=== PATIENT | female | born 1950 | race Caucasian/White ===

== ENCOUNTER 2023-05-11 09:52 | Day surgery (SDC) | payer OTHER ==
[~2023-05-11] VITALS: Ht 165.1 cm; Wt 91.7 kg
[2023-05-11] MEDS ORDERED: Aspir 8181 MG PO (10:11)
[2023-05-11] MEDS ORDERED: ACET325 PO (10:12)
--- NOTE | 2023-05-11 10:24 | NUR ---
05/11/23 1024 Morena Fallon AT 1015 PLEDGET 1018
--- NOTE | 2023-05-11 11:19 | NUR ---
05/11/23 1119 Paul Roman IV REMOVED INTACT. SITE WNL.
== END 2023-05-11 11:30 | disposition home or self-care (01) ==
LOC: ORSCSDS 09:52
PROVIDERS: Ophthalmology
PROC: 08DJ3ZZ Extraction of Right Lens, Percutaneous Approach (ICD-10-PCS; principal; 2023-05-11 11:00)
DX: H25.11 Age-related nuclear cataract, right eye (principal); F17.210 Nicotine dependence, cigarettes, uncomplicated; E66.9 Obesity, unspecified; Z68.33 Body mass index [BMI] 33.0-33.9, adult; I10 Essential (primary) hypertension; Z79.82 Long term (current) use of aspirin; Z79.899 Other long term (current) drug therapy
CPT/HCPCS: J2001; J2250; J3010; J3301; J7040; V2632

== ENCOUNTER 2023-05-18 07:51 | Day surgery (SDC) | payer OTHER ==
[~2023-05-18] VITALS: Ht 165.1 cm; Wt 91.0 kg
[~2023-05-18 07:51] MED LIST: ACET325 PO; Aspir 8181 MG PO
--- NOTE | 2023-05-18 08:15 | NUR ---
05/18/23 0815 Morena Fallon AT 0812 PLEDGET AT 0813
== END 2023-05-18 09:24 | disposition home or self-care (01) ==
LOC: ORSCSDS 07:51
PROVIDERS: Ophthalmology
PROC: 08RK3JZ Replacement of Left Lens with Synthetic Substitute, Percutaneous Approach (ICD-10-PCS; principal; 2023-05-18 09:00)
DX: H25.12 Age-related nuclear cataract, left eye (principal); Z96.1 Presence of intraocular lens; I10 Essential (primary) hypertension; E66.9 Obesity, unspecified; Z68.34 Body mass index [BMI] 34.0-34.9, adult; Z79.899 Other long term (current) drug therapy; Z79.82 Long term (current) use of aspirin; F17.210 Nicotine dependence, cigarettes, uncomplicated
CPT/HCPCS: J2001; J2250; J3010; J3301; J7040; V2632

== ENCOUNTER 2024-08-01 22:31 | Emergency (ER) | payer OTHER ==
[~2024-08-01] VITALS: Ht 165.1 cm; Wt 90.7 kg
[2024-08-01] MEDS ORDERED: Ondansetron HCl 2 MG / ML 2ML Vial ONE (22:38)
[2024-08-01] MEDS ORDERED: NS 1,000 ML IV ONE (22:39)
[2024-08-01] MEDS ORDERED: Ondansetron HCl 2 MG / ML 2ML Vial IV PRN (22:45)
[2024-08-01 22:50] LABS: BASOPHILS ABSOLUTE AUTO 0.06 K/mm3 (0.00-0.23); BASOPHILS PERCENT AUTO 1 % (0-2); EOSINOPHILS ABSOLUTE AUTO 0.01 K/mm3 (0.00-0.68); EOSINOPHILS PERCENT AUTO 0 % (0-6); Hematocrit 49.9 % (33.0-51.0); Hemoglobin 16.8 g/dL (11.5-16.0); IMMATURE GRAN ABSOLUTE AUTO 0.05 K/mm3 (0.00-0.10); IMMATURE GRAN PERCENT AUTO 0 % (0-1); LYMPHOCYTES ABSOLUTE AUTO 1.59 K/mm3 (0.84-5.20); LYMPHOCYTES PERCENT AUTO 12 % (21-46); MONOCYTES ABSOLUTE AUTO 0.21 K/mm3 (0.16-1.47); MONOCYTES PERCENT AUTO 2 % (4-13); Mean Corpuscular HGB 29.3 pg (26.0-34.0); Mean Corpuscular HGB Conc 33.7 g/dL (31.5-36.5); Mean Corpuscular Volume 87 fL (80-100); NEUTROPHILS ABSOLUTE AUTO 11.41 K/mm3 (1.96-9.15); NEUTROPHILS PERCENT AUTO 86 % (41-73); Platelet Count 229 K/mm3 (150-400); RDW Coefficient Variation 13.9 % (11.7-14.2); RDW Standard Deviation 44.2 fL (35.1-46.3); Red Blood Cell Count 5.73 M/mm3 (3.80-5.20); White Blood Cell Count 13.33 K/mm3 (4.00-11.30)
[2024-08-01] MEDS ORDERED: Ondansetron HCl 2 MG / ML 2ML Vial IV ONE (22:55)
[2024-08-01] MEDS ORDERED: Morphine Sulfate 4 MG/1 ML Injection IV ONE (22:55)
[2024-08-01 23:02] LABS: Albumin/Globulin Ratio 0.9 (0.8-1.8); Bilirubin, Total 0.4 mg/dL (0.1-1.0); Bun/Creatinine Ratio 21.8 (12.0-20.0); Calcium, Blood 9.8 mg/dL (8.5-10.1); Creatinine, Blood 0.69 mg/dL (0.40-1.00); Globulin, Blood 4.3 g/dL (2.2-4.0); Potassium, Blood 4.3 mmol/L (3.5-5.5); Total Protein, Blood 8.3 g/dL (6.4-8.2)
[2024-08-01 23:38] LABS: Source, Urine Clean Catch
[2024-08-01 23:40] LABS: Bilirubin, Urine Neg (Neg); Blood, Urine Neg (Neg); Glucose Qualitative, Urine Neg (Neg); Ketones, Urine 2+ (Neg); Leukocyte Esterase, Urine Neg (Neg); Nitrite, Urine Neg (Neg); Protein, Urine 2+ (Neg); Urobilinogen, Urine NORM (Normal)
[2024-08-02 00:14] LABS: Color, Urine Yellow (P-Yellow)
[2024-08-02 00:15] LABS: Amorphous Light (0-Heavy); Appearance, Urine Clear (Clear); Bacteria Few /hpf; Hyaline Casts 0-2 /lpf (0-2); Red Blood Cells, Urine 0-2 /hpf (0-2); Squamous Epithelial Cells Few /hpf (Few); White Blood Cells, Urine 0-2 /hpf (0-5)
[2024-08-02] MEDS ORDERED: Morphine Sulfate 4 MG/1 ML Injection IV ONE (01:55)
[2024-08-02] MEDS ORDERED: Tamsulosin HCl 0.4 MG Cap PO ONE (02:50)
[2024-08-02] MEDS ORDERED: RX Prepack 6 Tabs Oxycodone 5mg UD ONE (02:50)
[2024-08-02] MEDS ORDERED: OXYC5 PO (02:52)
[2024-08-02] MEDS ORDERED: TAMS.4ER PO (02:52)
[2024-08-02] MEDS ORDERED: NS 1,000 ML IV SCH (04:30)
== END 2024-08-02 03:17 | disposition home or self-care (01) ==
LOC: ER 22:31
PROVIDERS: Emergency Medicine
DX: R10.31 Right lower quadrant pain (principal); Z79.82 Long term (current) use of aspirin; Z88.5 Allergy status to narcotic agent
CPT/HCPCS: 74177; 80053; 81001; 83690; 85025; 96361; 96374-59; 96375; 96376; 99284-25; A9270; J2270; J2405; J7030; Q9967